=== PATIENT | female | born 2000 | race Caucasian/White ===

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

== ENCOUNTER 2021-08-30 12:28 | Outpatient (CLI) | payer MEDICAID ==
[2021-08-30 13:09] VITALS: BP 114/67
[2021-08-30] MEDS ORDERED: FLUCONAZOLE 200 MG TAB PO SCH (14:00)
[2021-08-30] MEDS ORDERED: NYSTATIN CREAM 15 GM TUBE TP SCH (14:00)
[2021-08-30] MEDS ORDERED: TRIAMCINOLONE 0.1% CREAM 15 GM TP SCH (14:00)
[2021-08-30] MEDS ORDERED: LACTATED RINGERS 500 ML IV ONE (14:27)
== END 2021-08-30 14:45 | disposition home or self-care (01) ==
LOC: TRG 12:28 → APU 12:28 → TRG 14:45
PROVIDERS: ATTEND Obstetrics & Gynecology
DX: Z34.93 Encounter for supervision of normal pregnancy, unspecified, third trimester (principal); Z3A.36 36 weeks gestation of pregnancy
CPT/HCPCS: 59025